=== PATIENT | male | born 2005 | race Caucasian/White ===

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

== ENCOUNTER 2025-01-13 14:31 | Emergency (ER) | payer OTHER ==
[~2025-01-13] VITALS: Ht 180.3 cm; Wt 64.9 kg
[2025-01-13 14:50] VITALS: BP 145/98
[2025-01-13] MEDS ORDERED: ALPR.5 PO (15:02)
== END 2025-01-13 16:14 | disposition home or self-care (01) ==
LOC: ER 14:31
DX: F41.0 Panic disorder [episodic paroxysmal anxiety] (principal)
CPT/HCPCS: 99283; A9270